=== PATIENT | male | born 1950 | race African-American/Black ===

== ENCOUNTER 2017-10-15 21:30 | Observation (INO) | payer MEDICARE, OTHER ==
[2017-10-15] MEDS: LORAZEPAM 1 MG TAB PO (22:36)
[2017-10-15] MEDS: SOD CHLORIDE 0.9% 1,000 ML IV (22:45)
[2017-10-15 22:49] LABS: ANION GAP 21 (8-16); BLOOD UREA NITROGEN 63 mg/dl (7-20); CARBON DIOXIDE 18 mmol/L (21-31); CHLORIDE 107 mmol/L (97-110); CREATININE 2.79 mg/dl (0.61-1.24); GLUCOSE 68 mg/dl (70-220); POTASSIUM 5.2 mmol/L (3.5-5.1); SODIUM 141 mmol/L (135-144)
[2017-10-15 22:51] LABS: CARBAMAZEPINE (TEGRETOL) < 3.0 ug/ml (8.0-12.0); PHENYTOIN (DILANTIN) < 3.0 ug/ml (10.0-20.0); VALPROATE < 10 ug/ml (50-100)
[2017-10-15 23:38] LABS: ADD MAN DIFF? NO
[2017-10-15 23:49] LABS: WHITE BLOOD COUNT 4.6 10^3/ul (4.8-10.8)
[2017-10-15 23:49] LABS: ABNORMAL IP MESSAGE 1; BASOPHILS % 0.4 % (0.0-2.0); EOSINOPHILS % 0.2 % (0.0-7.0); HEMATOCRIT 33.5 % (42.0-52.0); LYMPHOCYTES # 1.1 10^3/ul (0.8-2.9); LYMPHOCYTES % 23.1 % (15.0-51.0); MEAN CORPUSCULAR HEMOGLOBIN 28.5 pg (29.0-33.0); MEAN CORPUSCULAR HGB CONC 29.9 g/dl (32.0-37.0); MEAN CORPUSCULAR VOLUME 95.4 fl (82.0-101.0); MEAN PLATELET VOLUME 10.7 fl (7.4-10.4); MONOCYTE # 0.8 10^3/ul (0.3-0.9); MONOCYTES % 17.2 % (0.0-11.0); NEUTROPHIL # 2.7 10^3/ul (1.6-7.5); NEUTROPHILS % 58.9 % (39.0-77.0); NUCLEATED RED BLOOD CELLS # 0.2 10^3/ul (0.0-0.0); NUCLEATED RED BLOOD CELLS% 3.4 /100WBC (0.0-0.0); PLATELET COUNT 216 10^3/UL (140-415); POSITIVE DIFF @See below; RED BLOOD COUNT 3.51 10^6/ul (4.70-6.10); RED CELL DISTRIBUTION WIDTH 22.4 % (11.5-14.5)
[2017-10-16] MEDS: LEVETIRACETAM 500 MG (PMX) 100 ML IVPB (00:25)
[2017-10-16] MEDS ORDERED: NACL 0.9% 3 ML SYG IV (00:30)
[2017-10-16] MEDS ORDERED: ACETAMINOPHEN 325 MG TAB PO ×2 (00:30)
[2017-10-16] MEDS ORDERED: ONDANSETRON 4 MG INJ IV ×2 (00:30)
[2017-10-16] MEDS ORDERED: LORAZEPAM 2 MG INJ IV ×2 (00:30→01:00)
[2017-10-16] MEDS ORDERED: ALBUTEROL/IPRATROPIUM (NEB) 3 ML AMP HHN (00:30)
[2017-10-16] MEDS ORDERED: LEVETIRACETAM 750 MG TAB PO (01:00)
[2017-10-16] MEDS: SOD CHLORIDE 0.9% 1,000 ML IV ×2 (03:25→15:38)
[2017-10-16] MEDS: FUROSEMIDE 40 MG TAB PO (05:34)
[2017-10-16 06:44] LABS: ADD MAN DIFF? NO
[2017-10-16 06:47] LABS: ABNORMAL IP MESSAGE 1; BASOPHILS % 0.6 % (0.0-2.0); EOSINOPHILS % 0.2 % (0.0-7.0); HEMATOCRIT 32.6 % (42.0-52.0); HEMOGLOBIN 9.7 g/dl (14.0-18.0); LYMPHOCYTES % 17.7 % (15.0-51.0); MEAN CORPUSCULAR HEMOGLOBIN 27.6 pg (29.0-33.0); MEAN CORPUSCULAR HGB CONC 29.8 g/dl (32.0-37.0); MEAN CORPUSCULAR VOLUME 92.9 fl (82.0-101.0); MEAN PLATELET VOLUME 10.5 fl (7.4-10.4); MONOCYTE # 1.1 10^3/ul (0.3-0.9); NEUTROPHIL # 3.3 10^3/ul (1.6-7.5); NEUTROPHILS % 60.1 % (39.0-77.0); NUCLEATED RED BLOOD CELLS # 0.1 10^3/ul (0.0-0.0); NUCLEATED RED BLOOD CELLS% 1.8 /100WBC (0.0-0.0); PLATELET COUNT 179 10^3/UL (140-415); POSITIVE DIFF @See below; RED BLOOD COUNT 3.51 10^6/ul (4.70-6.10); RED CELL DISTRIBUTION WIDTH 22.2 % (11.5-14.5)
[2017-10-16 06:47] LABS: WHITE BLOOD COUNT 5.4 10^3/ul (4.8-10.8)
[2017-10-16 07:13] LABS: ANION GAP 18 (8-16); BLOOD UREA NITROGEN 69 mg/dl (7-20); CALCIUM 8.9 mg/dl (8.4-10.2); CARBON DIOXIDE 22 mmol/L (21-31); CHLORIDE 107 mmol/L (97-110); CREATININE 2.78 mg/dl (0.61-1.24); GLUCOSE 121 mg/dl (70-220); MAGNESIUM 2.5 mg/dl (1.7-2.5); PHOSPHORUS 5.4 mg/dl (2.5-4.9); POTASSIUM 4.9 mmol/L (3.5-5.1); SODIUM 142 mmol/L (135-144)
[2017-10-16] MEDS: LINAGLIPTIN 5 MG TABLET PO (09:40)
[2017-10-16] MEDS: ASPIRIN 81 MG TAB PO (09:41)
[2017-10-16] MEDS: DOCUSATE SODIUM 250 MG CAP PO (09:41)
[2017-10-16] MEDS: LEVETIRACETAM 750 MG TAB PO ×2 (09:41→20:52)
[2017-10-16] MEDS: ISOSORBIDE MONONITRATE(SR)60 MG TAB PO (09:41)
[2017-10-16] MEDS: LACTATED RINGER'S 500 ML IV (12:45)
[2017-10-16] MEDS: ATORVASTATIN 40 MG TAB PO (20:52)
[2017-10-17] MEDS: FUROSEMIDE 40 MG TAB PO (05:51)
[2017-10-17] MEDS: SOD CHLORIDE 0.9% 1,000 ML IV (05:52)
[2017-10-17 06:38] LABS: ADD MAN DIFF? NO
[2017-10-17 06:46] LABS: PHENOBARBITAL <5.0 mg/L (15.0-40.0)
[2017-10-17 06:52] LABS: WHITE BLOOD COUNT 4.9 10^3/ul (4.8-10.8)
[2017-10-17 06:52] LABS: BASOPHILS % 0.2 % (0.0-2.0); EOSINOPHILS % 0.6 % (0.0-7.0); HEMOGLOBIN 8.5 g/dl (14.0-18.0); LYMPHOCYTES # 0.7 10^3/ul (0.8-2.9); LYMPHOCYTES % 14.1 % (15.0-51.0); MEAN CORPUSCULAR HEMOGLOBIN 27.7 pg (29.0-33.0); MEAN CORPUSCULAR HGB CONC 30.4 g/dl (32.0-37.0); MEAN CORPUSCULAR VOLUME 91.2 fl (82.0-101.0); MEAN PLATELET VOLUME 10.3 fl (7.4-10.4); MONOCYTE # 0.8 10^3/ul (0.3-0.9); MONOCYTES % 15.4 % (0.0-11.0); NEUTROPHIL # 3.4 10^3/ul (1.6-7.5); NEUTROPHILS % 69.3 % (39.0-77.0); NUCLEATED RED BLOOD CELLS # 0.1 10^3/ul (0.0-0.0); NUCLEATED RED BLOOD CELLS% 1.4 /100WBC (0.0-0.0); PLATELET COUNT 188 10^3/UL (140-415); RED BLOOD COUNT 3.07 10^6/ul (4.70-6.10)
[2017-10-17 07:21] LABS: ALANINE AMINOTRANSFERASE 97 IU/L (13-69); ALBUMIN 2.8 g/dl (3.3-4.9); ALBUMIN/GLOBULIN RATIO 0.75; ALKALINE PHOSPHATASE 88 IU/L (42-121); ANION GAP 13 (8-16); ASPARTATE AMINO TRANSFERASE 48 IU/L (15-46); BILIRUBIN,INDIRECT 0.2 mg/dl (0-1.1); BILIRUBIN,TOTAL 0.2 mg/dl (0.2-1.3); BLOOD UREA NITROGEN 64 mg/dl (7-20); CALCIUM 8.3 mg/dl (8.4-10.2); CARBON DIOXIDE 27 mmol/L (21-31); CHLORIDE 107 mmol/L (97-110); CREATININE 2.35 mg/dl (0.61-1.24); GLUCOSE 111 mg/dl (70-220); POTASSIUM 4.8 mmol/L (3.5-5.1); SODIUM 142 mmol/L (135-144); TOTAL PROTEIN 6.5 g/dl (6.1-8.1)
[2017-10-17 07:59] LABS: PHOSPHORUS 3.9 mg/dl (2.5-4.9)
[2017-10-17 07:59] LABS: MAGNESIUM 2.1 mg/dl (1.7-2.5)
[2017-10-17] MEDS: LINAGLIPTIN 5 MG TABLET PO (09:24)
[2017-10-17] MEDS: LEVETIRACETAM 750 MG TAB PO ×2 (09:24→20:23)
[2017-10-17] MEDS: ISOSORBIDE MONONITRATE(SR)60 MG TAB PO (09:24)
[2017-10-17] MEDS: DOCUSATE SODIUM 250 MG CAP PO (09:24)
[2017-10-17] MEDS: ASPIRIN 81 MG TAB PO (09:24)
[2017-10-17] MEDS: LACTATED RINGER'S 500 ML IV (10:33)
[2017-10-17] MEDS: ACCU-CHEK XX ×5 (10:55→20:33)
[2017-10-17] MEDS: ATORVASTATIN 40 MG TAB PO (20:23)
[2017-10-18] MEDS: SOD CHLORIDE 0.9% 1,000 ML IV ×2 (05:38→05:46)
[2017-10-18] MEDS: FUROSEMIDE 40 MG TAB PO (05:41)
[2017-10-18 07:42] LABS: ADD MAN DIFF? NO
[2017-10-18 07:47] LABS: BASOPHILS % 0.4 % (0.0-2.0); EOSINOPHILS # 0.1 10^3/ul (0.0-0.5); HEMATOCRIT 28.5 % (42.0-52.0); HEMOGLOBIN 8.7 g/dl (14.0-18.0); LYMPHOCYTES # 0.7 10^3/ul (0.8-2.9); LYMPHOCYTES % 14.2 % (15.0-51.0); MEAN CORPUSCULAR HEMOGLOBIN 27.9 pg (29.0-33.0); MEAN CORPUSCULAR HGB CONC 30.5 g/dl (32.0-37.0); MEAN CORPUSCULAR VOLUME 91.3 fl (82.0-101.0); MEAN PLATELET VOLUME 10.2 fl (7.4-10.4); MONOCYTE # 0.7 10^3/ul (0.3-0.9); MONOCYTES % 14.6 % (0.0-11.0); NEUTROPHIL # 3.4 10^3/ul (1.6-7.5); NEUTROPHILS % 69.2 % (39.0-77.0); NUCLEATED RED BLOOD CELLS% 0.4 /100WBC (0.0-0.0); PLATELET COUNT 171 10^3/UL (140-415); RED BLOOD COUNT 3.12 10^6/ul (4.70-6.10); RED CELL DISTRIBUTION WIDTH 21.9 % (11.5-14.5)
[2017-10-18 07:47] LABS: WHITE BLOOD COUNT 4.9 10^3/ul (4.8-10.8)
[2017-10-18] MEDS: ACCU-CHEK XX ×3 (08:02→12:11)
[2017-10-18 08:08] LABS: ANION GAP 9 (8-16); BLOOD UREA NITROGEN 43 mg/dl (7-20); CALCIUM 8.3 mg/dl (8.4-10.2); CARBON DIOXIDE 27 mmol/L (21-31); CHLORIDE 107 mmol/L (97-110); CREATININE 1.72 mg/dl (0.61-1.24); GLUCOSE 90 mg/dl (70-220); SODIUM 139 mmol/L (135-144)
[2017-10-18] MEDS: ASPIRIN 81 MG TAB PO (08:44)
[2017-10-18] MEDS: LEVETIRACETAM 750 MG TAB PO (08:44)
[2017-10-18] MEDS: DOCUSATE SODIUM 250 MG CAP PO (08:44)
[2017-10-18] MEDS: LINAGLIPTIN 5 MG TABLET PO (08:44)
[2017-10-18] MEDS: ISOSORBIDE MONONITRATE(SR)60 MG TAB PO (08:45)
== END 2017-10-18 13:05 | disposition left against medical advice (07) ==
LOC: E/R 21:30 → MS4 23:38
PROVIDERS: Internal Medicine
DX: G40.909 Epilepsy, unspecified, not intractable, without status epilepticus (principal); E86.0 Dehydration; I12.9 Hypertensive chronic kidney disease with stage 1 through stage 4 chronic kidney disease, or unspecified chronic kidney disease; N18.9 Chronic kidney disease, unspecified; J44.9 Chronic obstructive pulmonary disease, unspecified; E11.649 Type 2 diabetes mellitus with hypoglycemia without coma; I50.20 Unspecified systolic (congestive) heart failure; Z86.73 Personal history of transient ischemic attack (TIA), and cerebral infarction without residual deficits; E78.5 Hyperlipidemia, unspecified
CPT/HCPCS: 36415; 70450; 80048; 80053; 80156; 80164; 80184; 80185; 82962; 83036; 83735; 84100; 85025; 93005; 96360; 97161; 99217; 99285-25; G0378

== ENCOUNTER 2018-09-13 18:44 | Inpatient (IN) | payer MEDICARE, OTHER ==
[2018-09-13 19:19] LABS: WHITE BLOOD COUNT 3.3 10^3/ul (4.8-10.8)
[2018-09-13 19:19] LABS: ABNORMAL IP MESSAGE 1; HEMATOCRIT 33.7 % (42.0-52.0); MEAN CORPUSCULAR HEMOGLOBIN 30.4 pg (29.0-33.0); MEAN CORPUSCULAR HGB CONC 29.7 g/dl (32.0-37.0); MEAN CORPUSCULAR VOLUME 102.4 fl (82.0-101.0); MEAN PLATELET VOLUME 11.3 fl (7.4-10.4); NUCLEATED RED BLOOD CELLS% 0.9 /100WBC (0.0-0.0); PLATELET COUNT 98 10^3/UL (140-415); POSITIVE DIFF @See below; RED BLOOD COUNT 3.29 10^6/ul (4.70-6.10); RED CELL DISTRIBUTION WIDTH 16.6 % (11.5-14.5)
[2018-09-13 19:23] LABS: ADD MAN DIFF? YES
[2018-09-13 19:37] LABS: ACETAMINOPHEN < 10.0 ug/ml (10.0-30.0); ALANINE AMINOTRANSFERASE 17 IU/L (13-69); ALBUMIN/GLOBULIN RATIO 0.95; ALKALINE PHOSPHATASE 74 IU/L (42-121); ANION GAP 10 (5-13); ASPARTATE AMINO TRANSFERASE 25 IU/L (15-46); BILIRUBIN,INDIRECT 0.4 mg/dl (0-1.1); BILIRUBIN,TOTAL 0.4 mg/dl (0.2-1.3); BLOOD UREA NITROGEN 35 mg/dl (7-20); CALCIUM 9.3 mg/dl (8.4-10.2); CARBON DIOXIDE 28 mmol/L (21-31); CHLORIDE 103 mmol/L (97-110); CREATININE 2.14 mg/dl (0.61-1.24); ETHANOL < 10.0 mg/dl (0-0); Estimated GFR 37 mL/min (>60); GLUCOSE 105 mg/dl (70-220); POTASSIUM 4.9 mmol/L (3.5-5.1); SALICYLATE < 1.0 mg/dl (5.0-30.0); SODIUM 141 mmol/L (135-144); TOTAL PROTEIN 8.2 g/dl (6.1-8.1)
[2018-09-13] MEDS: SOD CHLORIDE 0.9% 500 ML IV (19:53)
[2018-09-13 19:59] LABS: ANISOCYTOSIS 1+ (0-0); BAND NEUTROPHILS % (M) 1 % (0-4); EOSINOPHILS % (M) 5 % (0-7); ERYTHROBLAST% (NRBC) (M) 4 % (0-0); LYMPHOCYTES #M 0.9 10^3/ul (0.8-2.9); LYMPHOCYTES % (M) 28 % (15-51); MONOCYTE #M 0.4 10^3/ul (0.3-0.9); MONOCYTES % (M) 13 % (0-11); OVALOCYTES 1+ (0-0); PLATELET ESTIMATE DECREASED; POIKILOCYTOSIS 1+ (0-0); POLYCHROMASIA 2+ (0-0); SEG NEUT #M 1.7 10^3/ul (1.6-7.5); SEGMENTED NEUTROPHILS (M) % 53 % (39-77); SMUDGE%M 3 % (0-0)
[2018-09-13 21:59] LABS: ADD UMIC YES; UR ASCORBIC ACID 40 mg/dL (NEGATIVE); UR BILIRUBIN (Dip) NEGATIVE (NEGATIVE); UR BLOOD (Dip) NEGATIVE (NEGATIVE); UR CLARITY CLEAR (CLEAR); UR COLOR YELLOW (YELLOW); UR GLUCOSE (Dip) NEGATIVE (NEGATIVE); UR KETONES (Dip) NEGATIVE (NEGATIVE); UR LEUKOCYTE ESTERASE (Dip) 1+ Leu/ul (NEGATIVE); UR NITRITE (Dip) NEGATIVE (NEGATIVE); UR RBC 2 /HPF (0-5); UR SPECIFIC GRAVITY (Dip) 1.013 (1.003-1.030); UR TOTAL PROTEIN (Dip) NEGATIVE (NEGATIVE); UR UROBILINOGEN (Dip) 1+ mg/dL (NEGATIVE); UR WBC 13 /HPF (0-5)
[2018-09-13 22:22] LABS: AMPHETAMINE/METHAMPHETAMINE Negative (NEGATIVE); BARBITURATES Negative (NEGATIVE); BENZODIAZEPINES Negative (NEGATIVE); CANNABINOIDS Negative (NEGATIVE); OPIATES Positive (NEGATIVE)
[2018-09-13 22:26] LABS: COCAINE Positive (NEGATIVE)
[2018-09-13] MEDS: CEFTRIAXONE 1 GM/50 ML (PMX) 50 ML IVPB (23:15)
[2018-09-13] MEDS ORDERED: hydrALAzine 20 MG INJ IV (23:30)
[2018-09-13] MEDS ORDERED: MAGNESIUM HYDROXIDE 30ML CUP PO (23:30)
[2018-09-13] MEDS ORDERED: NACL 0.9% 3 ML SYG IV (23:30)
[2018-09-13] MEDS ORDERED: LORAZEPAM 2 MG INJ IV (23:30)
[2018-09-13] MEDS ORDERED: ONDANSETRON 4 MG INJ IV (23:30)
[2018-09-13] MEDS ORDERED: DOCUSATE SODIUM 100 MG CAP PO (23:30)
[2018-09-13] MEDS ORDERED: HYDROCODONE/APAP (5/325) TAB PO (23:30)
[2018-09-13] MEDS ORDERED: NITROGLYCERIN (SL) 0.4 MG TAB SL (23:30)
[2018-09-13] MEDS ORDERED: ALBUTEROL/IPRATROPIUM (NEB) 3 ML AMP HHN (23:30)
[2018-09-13] MEDS ORDERED: morphine 2 MG INJ IV (23:30)
[2018-09-14] MEDS ORDERED: DEXTROSE 50% 50 ML SYRINGE IV ×2 (01:00)
[2018-09-14] MEDS ORDERED: GLUCAGON 1 MG INJ IM (01:00)
[2018-09-14] MEDS: INSULIN ASPART [NOVOLOG] 3 ML PEN SC ×6 (01:00→21:00)
[2018-09-14] MEDS ORDERED: GLUCOSE GEL 15 GRAM TUBE PO ×2 (01:00)
[2018-09-14] MEDS ORDERED: GLUCOSE GEL 15 GRAM TUBE BUCCAL (01:00)
[2018-09-14] MEDS ORDERED: ACCU-CHEK XX (02:00)
[2018-09-14] MEDS: LEVOFLOXACIN 750MG/D5W (PMX) 150 ML IVPB (05:08)
[2018-09-14 05:30] LABS: ADD MAN DIFF? NO
[2018-09-14 05:37] LABS: ABNORMAL IP MESSAGE 1; BASOPHILS % 0.8 % (0.0-2.0); EOSINOPHILS # 0.2 10^3/ul (0.0-0.5); EOSINOPHILS % 9.3 % (0.0-7.0); HEMATOCRIT 29.3 % (42.0-52.0); HEMOGLOBIN 8.8 g/dl (14.0-18.0); LYMPHOCYTES # 0.7 10^3/ul (0.8-2.9); LYMPHOCYTES % 28.2 % (15.0-51.0); MEAN CORPUSCULAR HEMOGLOBIN 30.4 pg (29.0-33.0); MEAN CORPUSCULAR VOLUME 101.4 fl (82.0-101.0); MEAN PLATELET VOLUME 11.6 fl (7.4-10.4); MONOCYTE # 0.3 10^3/ul (0.3-0.9); MONOCYTES % 13.7 % (0.0-11.0); NEUTROPHIL # 1.2 10^3/ul (1.6-7.5); NEUTROPHILS % 47.6 % (39.0-77.0); NUCLEATED RED BLOOD CELLS% 0.8 /100WBC (0.0-0.0); POSITIVE DIFF @See below; RED BLOOD COUNT 2.89 10^6/ul (4.70-6.10); RED CELL DISTRIBUTION WIDTH 16.6 % (11.5-14.5)
[2018-09-14 05:37] LABS: WHITE BLOOD COUNT 2.5 10^3/ul (4.8-10.8)
[2018-09-14 05:48] LABS: HEMOGLOBIN A1C 5.1 % (0-5.9)
[2018-09-14 06:03] LABS: PLATELET COUNT 94 10^3/UL (140-415)
[2018-09-14 06:10] LABS: ANION GAP 7 (5-13); BLOOD UREA NITROGEN 31 mg/dl (7-20); CALCIUM 8.6 mg/dl (8.4-10.2); CARBON DIOXIDE 27 mmol/L (21-31); CHLORIDE 106 mmol/L (97-110); CREATININE 1.74 mg/dl (0.61-1.24); Estimated GFR 48 mL/min (>60); GLUCOSE 84 mg/dl (70-220); PHOSPHORUS 3.8 mg/dl (2.5-4.9); POTASSIUM 4.4 mmol/L (3.5-5.1); SODIUM 140 mmol/L (135-144)
[2018-09-14 06:13] LABS: CHOL/HDL RATIO 2.2 RATIO; HDL CHOLESTEROL 38 mg/dl (30-78); LDL CHOLESTEROL,CALCULATED 37 mg/dl; TRIGLYCERIDES 43 mg/dl (0-149)
[2018-09-14 06:13] LABS: CHOLESTEROL 84 mg/dl (100-200)
[2018-09-14] MEDS: ISOSORBIDE MONONITRATE(SR)60 MG TAB PO (09:00)
[2018-09-14] MEDS: DOCUSATE SODIUM 250 MG CAP PO (09:10)
[2018-09-14] MEDS: ASPIRIN 81 MG TAB PO (09:10)
[2018-09-14] MEDS: FUROSEMIDE 40 MG TAB PO (09:11)
[2018-09-14] MEDS: HEPARIN 5,000 UNIT/1 ML VIAL SC (09:11)
[2018-09-14 11:00] LABS: AADO2 Arterial 50.9 mmHg (7.0-24.0); Allen Test ACCEPTAB; Arterial Base Excess 2.8 mmol/L (-3.0-3); Arterial Blood Gas Oxygen Sat 94.8 mmHG (95.0-98.0); Arterial COHb 1.9 % (0.0-3.0); Arterial HCO3 28.8 mmol/L (22.0-26.0); Arterial MetHb 0 % (0.0-1.5); MODE NASAL CANNULA; Site Left Radial
[2018-09-14 12:18] LABS: IRON 32 ug/dl (35-150)
[2018-09-14 12:27] LABS: % IRON SATURATION 11 % SAT (22-52); TOTAL IRON BINDING CAPACITY 292 ug/dl (241-421)
[2018-09-14 12:55] LABS: FERRITIN 55.3 ng/ml (11.1-264.0)
[2018-09-14 13:58] LABS: FOLATE > 20.0 ng/ml (2.8-20.0)
[2018-09-14] MEDS: ATORVASTATIN 40 MG TAB PO (21:19)
[2018-09-14] MEDS: APIXABAN 5 MG TABLET PO (21:19)
[2018-09-15] MEDS: ACETAMINOPHEN 325 MG TAB PO (05:09)
[2018-09-15 06:43] LABS: ADD MAN DIFF? NO
[2018-09-15 06:48] LABS: WHITE BLOOD COUNT 2.7 10^3/ul (4.8-10.8)
[2018-09-15 06:48] LABS: ABNORMAL IP MESSAGE 1; BASOPHILS % 0.7 % (0.0-2.0); EOSINOPHILS # 0.1 10^3/ul (0.0-0.5); EOSINOPHILS % 5.1 % (0.0-7.0); HEMATOCRIT 31.9 % (42.0-52.0); HEMOGLOBIN 9.1 g/dl (14.0-18.0); LYMPHOCYTES # 0.5 10^3/ul (0.8-2.9); LYMPHOCYTES % 18.6 % (15.0-51.0); MEAN CORPUSCULAR HEMOGLOBIN 29.9 pg (29.0-33.0); MEAN CORPUSCULAR HGB CONC 28.5 g/dl (32.0-37.0); MEAN CORPUSCULAR VOLUME 104.9 fl (82.0-101.0); MEAN PLATELET VOLUME 12.6 fl (7.4-10.4); MONOCYTE # 0.4 10^3/ul (0.3-0.9); MONOCYTES % 15.7 % (0.0-11.0); NEUTROPHIL # 1.6 10^3/ul (1.6-7.5); NEUTROPHILS % 59.5 % (39.0-77.0); PLATELET COUNT 87 10^3/UL (140-415); RED BLOOD COUNT 3.04 10^6/ul (4.70-6.10); RED CELL DISTRIBUTION WIDTH 16.4 % (11.5-14.5)
[2018-09-15] MEDS: INSULIN ASPART [NOVOLOG] 3 ML PEN SC ×2 (07:00→11:31)
[2018-09-15 07:25] LABS: ANION GAP 7 (5-13); BLOOD UREA NITROGEN 38 mg/dl (7-20); CALCIUM 8.8 mg/dl (8.4-10.2); CARBON DIOXIDE 28 mmol/L (21-31); CHLORIDE 105 mmol/L (97-110); CREATININE 1.76 mg/dl (0.61-1.24); Estimated GFR 47 mL/min (>60); GLUCOSE 122 mg/dl (70-220); POTASSIUM 4.4 mmol/L (3.5-5.1); SODIUM 140 mmol/L (135-144)
[2018-09-15] MEDS: APIXABAN 5 MG TABLET PO (07:41)
[2018-09-15] MEDS: FUROSEMIDE 40 MG TAB PO (07:42)
[2018-09-15] MEDS: DOCUSATE SODIUM 250 MG CAP PO (07:42)
[2018-09-15] MEDS: ISOSORBIDE MONONITRATE(SR)60 MG TAB PO (07:42)
== END 2018-09-15 17:01 | DRG 917 ==
LOC: 6WM 22:44 → E/R 18:44 → 6WM 09-14 00:04
DX: T40.2X1A Poisoning by other opioids, accidental (unintentional), initial encounter (principal); G92 Toxic encephalopathy; N39.0 Urinary tract infection, site not specified; I48.92 Unspecified atrial flutter; I42.9 Cardiomyopathy, unspecified; D61.818 Other pancytopenia; I50.22 Chronic systolic (congestive) heart failure; I13.0 Hypertensive heart and chronic kidney disease with heart failure and stage 1 through stage 4 chronic kidney disease, or unspecified chronic kidney disease; E11.8 Type 2 diabetes mellitus with unspecified complications; I48.91 Unspecified atrial fibrillation; J44.9 Chronic obstructive pulmonary disease, unspecified; F14.90 Cocaine use, unspecified, uncomplicated; Z79.4 Long term (current) use of insulin; E78.5 Hyperlipidemia, unspecified; I25.10 Atherosclerotic heart disease of native coronary artery without angina pectoris; N18.9 Chronic kidney disease, unspecified; F17.200 Nicotine dependence, unspecified, uncomplicated; I73.9 Peripheral vascular disease, unspecified; E86.0 Dehydration
CPT/HCPCS: 36600; 70450; 71045; 80048; 80053; 80061; 80307; 81001; 82607; 82728; 82746; 82803; 82962; 83036; 83540; 83735; 84100; 84439; 84443; 84484; 85025; 87081; 87086; 92610; 93005; 93306; 97162; 97166; 99285-25